=== PATIENT | male | born 1990 | race Caucasian/White ===

== ENCOUNTER 2017-09-18 01:41 | Emergency (ER) | payer OTHER | END 2017-09-18 01:48 | disposition E | DRG 84 | LOC: ED 01:41 | DX: S01.00XA Unspecified open wound of scalp, initial encounter; S49.91XA Unspecified injury of right shoulder and upper arm, initial encounter; S19.9XXA Unspecified injury of neck, initial encounter; V09.9XXA Pedestrian injured in unspecified transport accident, initial encounter ==